=== PATIENT | female | born 1950 | race Caucasian/White ===

== ENCOUNTER 2018-07-23 06:35 | Day surgery (SDC) | payer OTHER ==
[2018-07-23] MEDS: BETADINE OPTH PREP OP PRN ×2 (07:10→07:46)
[2018-07-23] MEDS: TETRACAINE 0.5% UNIT-DOSE OP PRN ×2 (07:10→07:46)
[2018-07-23] MEDS: CYCLOGYL 2% OPTH OP PRN ×3 (07:11→07:21)
[2018-07-23] MEDS ORDERED: BRIMONIDINE TARTRATE 0.2% OPTH SOL OP PRN (07:15)
[2018-07-23] MEDS ORDERED: ZOFRAN 4 MG/2 ML IVP ONE (07:15)
[2018-07-23] MEDS ORDERED: LIDOCAINE 1% 20 ML MDV ID STA (07:15)
[2018-07-23 07:22] VITALS: TEMP 98.3
[2018-07-23] MEDS: DEX-MOXI-KETOR OPTH INJ 1/0.5/0.4 MG/ML IO ONE ×2 (07:55→08:17)
[2018-07-23] MEDS: BSS WITH EPINEPHRINE OP ONE ×2 (07:55→08:12)
[2018-07-23] MEDS: LIDOCAINE 1%/PHENYLEPHRINE 1.5% BSS (SURGERY) INTRAOCULA ONE ×2 (07:55→08:12)
[2018-07-23] MEDS ORDERED: SUBLIMAZE ONE (08:01)
[2018-07-23] MEDS ORDERED: ZOFRAN 4 MG/2 ML ONE (08:01)
[2018-07-23] MEDS ORDERED: VERSED ONE (08:01)
[2018-07-25 11:16] VITALS: BP 121/66
== END 2018-07-23 09:10 | disposition home or self-care (01) ==
LOC: SURG 06:35
PROVIDERS: ATTEND Ophthalmology
DX: H25.812 Combined forms of age-related cataract, left eye (principal)